=== PATIENT | female | born 1960 ===

== ENCOUNTER 2018-06-26 11:46 | Outpatient (CLI) | payer OTHER ==
[~2018-06-26] VITALS: Ht 157.5 cm; Wt 61.2 kg
[~2018-06-26 11:46] MED LIST: ESTRADIOL1 MG PO
== END 2018-06-26 12:00 | disposition home or self-care (01) ==
LOC: OFIC 805 11:46
DX: H93.13 Tinnitus, bilateral (principal); H90.3 Sensorineural hearing loss, bilateral